=== PATIENT | male | born 1935 | race Two or more races ===

== ENCOUNTER 2024-10-20 23:23 | Emergency (ER) | payer OTHER ==
[~2024-10-20] VITALS: Ht 170.2 cm; Wt 62.6 kg
[2024-10-20] MEDS ORDERED: CHILDREN'S ASPI81 MG PO (23:52)
[2024-10-20] MEDS ORDERED: SIROLIMUS1 MG PO (23:53)
[2024-10-20] MEDS ORDERED: ACETAMINOPHEN 500 MG GEL..CAP PO ONE (23:58)
[2024-10-21] MEDS ORDERED: ACETAMINOPHEN 500 MG GEL..CAP PO STA (00:59)
[2024-10-21] MEDS ORDERED: 0.9 % SODIUM CHLORIDE 1,000 ML IV ONE (01:00)
[2024-10-21 02:17] LABS: COVID-19 AG NEGATIVE (NEGATIVE); INFLUENZA A AG NEGATIVE (NEGATIVE)
[2024-10-21 02:36] LABS: HEMOGLOBIN 10.6 g/dL (13-16.00); MEAN CELL VOLUME 90.4 fL (80.0-100.00); MEAN CORPUSCULAR HEMOGLOBIN 31.9 pg (27.00-32.0); MEAN CORPUSCULAR HGB CONC 35.4 g/dl (32.0-36.0); PLATELET COUNT 183 K/uL (150-450); RED BLOOD COUNT 3.31 M/uL (4.00-6.00); RED CELL DISTRIBUTION WIDTH 16.6 % (11.5-14.5)
[2024-10-21 03:04] LABS: ALBUMIN 2.5 gm/dL (3.4-5.0); BILIRUBIN TOTAL 1.5 mg/dL (0.3-1.2); BILIRUBIN,UNCONJUGATED 0.5 mg/dL (0.0-0.6); CALCIUM 8.5 mg/dL (8.5-10.1); CREATININE SERUM 0.9 mg/dL (0.70-1.30); GLOBULINA 3.8 G/DL (2.4-3.5); POTASSIUM 3.18 mEq/L (3.5-5.1); TOTAL PROTEIN 6.3 gm/dL (6.4-8.2)
[2024-10-21 03:29] LABS: GFR 79.64
[2024-10-21 06:00] LABS: PH,URINE 5.5 (5.0-8.0); URINE APPEARANCE Clear; URINE BILIRRUBIN Negative (NEGATIVE); URINE BLOOD Negative; URINE COLOR Yellow; URINE GLUCOSE Negative (NEGATIVE); URINE KETONE Negative (NEGATIVE); URINE LEUKOCYTE Negative; URINE NITRATE Negative; URINE PROTEIN Negative (NEGATIVE); URINE UROBILINOGEN 0.2 E.U./dl
[2024-10-21 06:04] LABS: URINE BACTERIA 4.8 uL (0.0-1933)
[2024-10-21 06:08] LABS: URINE CAST 0.14 uL (0.0-1.40); URINE EPITHELIAL CELLS 0.7 uL (0.0-38.8); URINE RBC 0.5 uL (0.0-20.8); URINE WBC 1.1 uL (0.0-23.2)
[2024-10-21] MEDS ORDERED: PEPCID40 MG PO (07:05)
[2024-10-21] MEDS ORDERED: ZOFRAN8 MG PO (07:05)
== END 2024-10-21 07:14 ==
LOC: ER 23:23
PROVIDERS: General Practice
DX: R11.10 Vomiting, unspecified (principal); Z85.89 Personal history of malignant neoplasm of other organs and systems; Z20.822 Contact with and (suspected) exposure to COVID-19